=== PATIENT | female | born 1985 | race Two or more races ===

== ENCOUNTER 2018-11-08 13:05 | Inpatient (IN) | payer OTHER ==
[2018-11-08 14:33] VITALS: BMI 19.3
--- NOTE | 2018-11-08 16:16 | HP ---
COWS - Scale Resting Pulse: 0= [place] 80 or Below Sweatin= Chills/Flushing Restless Observation: 1= Difficult to Sit Still Pupil Size: 0= Normal to Room Light Bone or Joint Aches: 2= Severe Diffuse Aches Runny Nose/ Eye Tearin= Nasal Congestion GI Upset > 30mins: 2= Nausea/Diarrhea Tremor Observation: 1= Tremor [place], Not Seen Yawning Observation: 0= None Anxiety or Irritability: 1=Feels Anxious/Irritable Goose Flesh Skin: 0=Smooth Skin COWS Score: 9 CIWA Score Nausea/Vomitin Muscle Tremors: 2 Anxiety: 1-Mildly Anxious Agitation: 1-Slight > Activity Paroxysmal Sweats: 1-Minimal Palms Moist Orientation: 0-Oriented Tacttile Disturbances: 0-None Auditory Disturbances: 0-None Visual Disturbances: 0-None Headache: 3-Moderate CIWA-Ar Total Score: 10 - Admission Criteria [facility] Guidelines: Admission for Medically Managed Detox: Requires at least one of the followin. CIWA greater than 12 2. Seizures within the past 24 hours 3. Delirium tremens within the past 24 hours 4. Hallucinations within the past 24 hours 5. Acute intervention needed for co occurring medical disorder 6. Acute intervention needed for co occurring psychiatric disorder 7. Severe withdrawal that cannot be handled at a lower level of care (continued vomiting, continued diarrhea, abnormal vital signs) requiring intravenous medication and/or fluids 8. Admission [facility] Chief Complaint: 33 y/o F with PMH HTN, asthma, eczema, PNA, hx hemothorax after trauma, who presents for detox from heroin, opiates, marijuana, cocaine. Allergies/Adverse Reactions: Allergies Allergy/AdvReac Type Severity Reaction Status Date / Time pseudoephedrine Allergy Intermediate Difficulty Verified 11/08/18 14:12 [From Sudafed] Breathing History of Present Illness: 33 y/o F with PMH HTN, asthma, eczema, PNA, hx hemothorax after trauma, who presents for detox from heroin, opiates, marijuana, and cocaine. Per pt, last used heroin a few hours ago. Sniffed 1 bag worth. Uses it to calm down from cocaine. Usually uses 2x/ week - via sniffing usually uses 5 bags worth. Never has OD, never IVDA. Never tried methadone. Used xanax 2 sticks once/ week, last use 2 days ago. Has used marijuana since age 15 every day 2-3g each time. Drug of choice is cocaine - last use was a few hours ago, 1g at a time, smoking it. Also drinks daily 3 beers/ day, last drink was a bottle of alcohol. [facility] detox rehab - [facility] Has also been jailed in [place] in past. PMH: as above PsxH: asbcess, tympanostomy tubes x 2 meds: albuterol, hydrocortisone cream, clobetasol ointment allergies: pseudoephedrine - asthma trigger FH: dad : colon CA, mother - asthmatic, brain aneurysm. SH: gets money from robbing cars. worked as a nurse's aid previously. smokes cigarettes 1/2 ppd x 10 yrs Exam Limitations: No Limitations - Ebola screening Have you traveled outside of the country in the last 21 days: No Have you had contact with anyone from an Ebola affected area: No Do you have a fever: No - Review of Systems Constitutional: Chills, Diaphoresis, Unintentional Wgt. Loss EENT: reports: Blurred Vision, Nose Congestion, Throat Pain Respiratory: reports: Shortness of Breath Cardiac: reports: No Symptoms Reported GI: reports: Nausea : reports: No Symptoms Reported Musculoskeletal: reports: Back Pain, Joint Pain Integumentary: reports: No Symptoms Reported Endocrine: reports: No Symptoms Reported, Excessive Sweating Hematology: reports: No Symptoms Reported Psychiatric: reports: No Sypmtoms Reported, Orientated x3 Patient History - Patient Medical History Hx Anemia: No Hx Asthma: Yes Hx Chronic Obstructive Pulmonary Disease (COPD): No Hx Cancer: No Hx Cardiac Disorders: No Hx Congestive Heart Failure: No Hx Hypertension: Yes Hx Pacemaker: No HX Cerebrovascular Accident: No Hx Seizures: No Hx Dementia: No Hx Diabetes: No Hx Gastrointestinal Disorders: No Hx Liver Disease: No Hx Genitourinary Disorders: No Hx Sexually Transmitted Disorders: No Hx Renal Disease (ESRD): No Hx Thyroid Disease: No Hx Human Immunodeficiency Virus (HIV): No Hx Hepatitis C: No Hx Depression: No Hx Suicide Attempt: No Hx Bipolar Disorder: No Hx Schizophrenia: No - Patient Surgical History Past Surgical History: No Hx Neurologic Surgery: No Hx Cataract Extraction: No Hx Cardiac Surgery: No Hx Lung Surgery: No Hx Breast Surgery: No Hx Breast Biopsy: No Hx Abdominal Surgery: No Hx Appendectomy: No Hx Cholecystectomy: No Hx Genitourinary Surgery: No Hx Section: No Hx Orthopedic Surgery: No Hx Hysterectomy: No Other Surgical History: ?lung abscess, tympanostomy tubes x 2 Anesthesia Reaction: No - PPD History Documented Results: Negative w/o proof PPD to be Administered?: Yes - Reproductive History Patient is a Female of Child Bearing Age (11 -55 yrs old): Yes Last Menstrual Period: 11/08/18 Patient : No - Smoking Cessation Smoking history: Current every day smoker Have you smoked in the past 12 months: Yes Aproximately how many cigarettes per day: 10 Hx Chewing Tobacco Use: No Initiated information on smoking cessation: Yes 'Breaking Loose' booklet given: 11/08/18 - Substance & Tx. History Hx Alcohol Use: Yes Substance Use Type: Alcohol, Cocaine, Heroin, Opiates - Substances abused Heroin Substance route: Inhalation Frequency: 1-2 times per week Amount used: 2 Age of first use: 30 Date of last use: 11/08/18 Barbiturate Substance route: Smoking Frequency: 1-2 times per week Amount used: 2 sticks Age of first use: 31 Date of last use: 11/08/18 Marijuana/Hashish Substance route: Smoking Frequency: Daily Amount used: 3 blunts Age of first use: 15 Date of last use: 11/08/18 Cocaine Substance route: Inhalation Frequency: 3-6 times per week Amount used: 8 grams Age of first use: 17 Date of last use: 11/08/18 Family Disease History - Family Disease History Family Disease History: CA: Father (colon CA ), Other: Mother (asthmatic , brain aneurysm) Admission Physical Exam BHS - Vital Signs Vital Signs: Vital Signs - 24 hr 11/08/18 11/08/18 14:04 15:16 Temperature 98.3 F 98.3 F Pulse Rate 70 70 Respiratory 18 18 Rate Blood Pressure 126/86 126/86 - Physical General Appearance: Yes: Within Normal Limits HEENTM: Yes: Within Normal Limits Respiratory: Yes: Lungs Clear Neck: Yes: Within Normal Limits Breast: Yes: Within Normal Limits Cardiology: Yes: Within Normal Limits Abdominal: Yes: Normal Bowel Sounds Genitourinary: Yes: Within Normal Limits Back: Yes: Within Normal Limits Musculoskeletal: Yes: full range of Motion Extremities: Yes: Within Normal Limits 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 intact Integumentary: Yes: Within Normal Limits Lymphatic: Yes: Within Normal Limits - Diagnostic (1) Hypertension Current Visit: Yes Status: Chronic (2) Asthma Current Visit: Yes Status: Chronic (3) Opiate withdrawal Current Visit: Yes Status: Acute (4) Marijuana use Current Visit: Yes Status: Chronic (5) Eczema Current Visit: Yes Status: Chronic (6) Alcohol dependence Current Visit: Yes Status: Chronic (7) Cocaine dependence Current Visit: Yes Status: Chronic Qualifiers: Substance use status: uncomplicated Qualified Code(s): F14.20 - Cocaine dependence, uncomplicated Cleared for Admission S - Detox or Rehab [facility] Level of Care: Medically Managed Detox Regimen/Protocol: Methadone Breathalyzer - Breathalyzer Breathalyzer: 0 Urine Drug Screen - Test Device Lot number: [id number] Expiration date: 08/23/20 - Control Is test valid?: Yes - Results Drug screen NEGATIVE: No Urine drug screen results: THC-Marijuana, ANTON-Cocaine, MOP-Opiates Inpatient Rehab Admission - Rehab Decision to Admit Inpatient rehab admission?: No
[2018-11-08] MEDS ORDERED: cloNIDine HCL 0.1 MG TABLET PO PRN (17:09)
[2018-11-08] MEDS ORDERED: IBUPROFEN 400 MG TABLET (FP) PO PRN (17:11)
[2018-11-08] MEDS ORDERED: BISMUTH SUBSALICYLATE 524 MG/30 ML UD PO PRN (17:11)
[2018-11-08] MEDS ORDERED: MENTHOL/PHENOL 1 EACH UD MM PRN (17:11)
[2018-11-08] MEDS ORDERED: NICOTINE POLACRILEX 2 MG GUM BUC PRN (17:11)
[2018-11-08] MEDS ORDERED: MAGNESIUM HYDROX 2400MG/30ML ORAL SUSPENSION 30 ML CUP PO PRN (17:11)
[2018-11-08] MEDS ORDERED: MAG HYDROX/AL HYDROX/SIMETH 30 ML UNIT-DOSE CUP PO PRN (17:11)
[2018-11-08] MEDS ORDERED: ACETAMINOPHEN 325 MG TABLET (FP) PO PRN (17:11)
[2018-11-08] MEDS ORDERED: FLUOCINONIDE 0.05% CREAM (15 GM TUBE) TP PRN (17:14)
[2018-11-08] MEDS ORDERED: METHADONE HCL 10 MG TABLET (FOR DETOX USE ONLY) PO ONE (18:00)
--- NOTE | 2018-11-08 18:24 | PN ---
Teaching Attending Note Name of Resident: Svetlana Ignacio ATTENDING PHYSICIAN STATEMENT I saw and evaluated the patient. I reviewed the resident's note and discussed the case with the resident. I agree with the resident's findings and plan as documented. SUBJECTIVE: pt here from detox of multiple substance use- alcohol/heroin/ cocaine. Pt states she is tired of using and wants to stop-USed to work as a administrative nursing supervisor OBJECTIVE: Vital Signs - 24 hr 11/08/18 11/08/18 14:04 15:16 Temperature 98.3 F 98.3 F Pulse Rate 70 70 Respiratory 18 18 Rate Blood Pressure 126/86 126/86 mildly tremulous alert and oriented ASSESSMENT AND PLAN: admit for alcohol and heroin detox pt would like to go for rehab after detox
[2018-11-08] MEDS: HYDROCORTISONE 1% TOPICAL CREAM 30 GM TUBE TP SCH (23:00)
[2018-11-08] MEDS: THIAMINE HCL 100 MG TABLET (FP) PO SCH (23:00)
[2018-11-08] MEDS: MELATONIN 5 MG TABLETS PO PRN (23:10)
[2018-11-09] MEDS: ALBUTEROL SO4 0.083% IH SOL 2.5 MG/3 ML VIAL.NEB. NEB PRN (03:16)
[2018-11-09] MEDS: HYDROCORTISONE 1% TOPICAL CREAM 30 GM TUBE TP SCH ×3 (07:07→22:22)
[2018-11-09] MEDS ORDERED: METHADONE HCL 10 MG TABLET (FOR DETOX USE ONLY) ONE (09:02)
[2018-11-09] MEDS ORDERED: METHADONE HCL 5 MG TABLET (FOR DETOX USE ONLY) ONE (09:02)
[2018-11-09 09:39] LABS: HEMATOCRIT 36.6 % (32.4-45.2); HEMOGLOBIN 12.2 GM/dL (10.7-15.3); MCH 29.8 pg (25.7-33.7); MCHC 33.5 g/dl (32.0-36.0); MEAN PLT VOLUME 7.4 fl (7.5-11.1); PLATELET COUNT 290 K/MM3 (134-434); RBC 4.11 M/mm3 (3.60-5.2); RDW 14.6 % (11.6-15.6); WHITE BLOOD COUNT 6.1 K/mm3 (4.0-10.0)
[2018-11-09] MEDS ORDERED: METHADONE (DETOX) 20 MG, METHADONE (DETOX) 5 MG PO ONE (10:00)
[2018-11-09 10:36] LABS: ALBUMIN 2.9 g/dl (3.4-5.0); BILIRUBIN,TOTAL 0.3 mg/dL (0.2-1); BLOOD UREA NITROGEN 14.5 mg/dL (7-18); CALCIUM 8.4 mg/dL (8.5-10.1); CREATININE 0.8 mg/dL (0.55-1.3)
[2018-11-09] MEDS: PRENATAL VITAMINS W/ FOLIC ACID TABLET (FP) PO SCH (10:52)
[2018-11-09] MEDS: METHOCARBAMOL 500 MG TABLET PO SCH ×2 (11:53→22:23)
--- NOTE | 2018-11-09 12:31 | PN ---
BHS COWS - Scale Resting Pulse: 1= [place] 81-100 Sweatin=Flushed/Facial Moisture Restless Observation: 1= Difficult to Sit Still Pupil Size: 0= Normal to Room Light Bone or Joint Aches: 2= Severe Diffuse Aches Runny Nose/ Eye Tearin= None GI Upset > 30mins: 0= None Tremor Observation of Outstretched Hands: 2= Slight Tremor Visible Yawning Observation: 1= 1-2x During Session Anxiety or Irritability: 2=Irritable/Anxious Goose Flesh Skin: 0=Smooth Skin COWS Score: 11 BHS Progress Note (SOAP) Subjective: sweats mild shakes interrupted sleep restless body aches Objective: 11/09/18 12:30 Vital Signs Temperature 97.7 F 11/09/18 07:42 Pulse Rate 64 11/09/18 07:42 Respiratory Rate 18 11/09/18 07:42 Blood Pressure 119/77 11/09/18 07:42 O2 Sat by Pulse Oximetry (%) 98 11/09/18 03:46 Laboratory Tests 11/09/18 11/09/18 11/09/18 07:40 07:40 07:40 WBC 6.1 RBC 4.11 Hgb 12.2 Hct 36.6 MCV 89.0 MCH 29.8 MCHC 33.5 RDW 14.6 Plt Count 290 MPV 7.4 L Sodium 141 Potassium 4.0 Chloride 106 Carbon Dioxide 29 Anion Gap 6 L BUN 14.5 Creatinine 0.8 Est GFR (CKD-EPI)AfAm 113.06 Est GFR (CKD-EPI)NonAf 97.55 Random Glucose 115 H Calcium 8.4 L Total Bilirubin 0.3 AST 16 ALT 19 Alkaline Phosphatase 74 Total Protein 6.0 L Albumin 2.9 L HIV 1&2 Antibody Screen Negative HIV P24 Antigen Negative labs noted aaox3 ambulating no acute distress Assessment: 11/09/18 12:30 withdrawal sx Plan: continue detox increase fluids valium 10mg prn
[2018-11-09] MEDS ORDERED: ONDANSETRON *ODT* 4 MG TABLET SL PRN (13:44)
--- NOTE | 2018-11-09 13:47 | PN ---
S Progress Note Note: Vital Signs Temperature 97.5 F L 11/09/18 13:02 Pulse Rate 64 11/09/18 13:02 Respiratory Rate 18 11/09/18 13:02 Blood Pressure 131/69 11/09/18 13:02 O2 Sat by Pulse Oximetry (%) 98 11/09/18 03:46 c/o of nausea and vomiting zofran prn fluids as tolerate continue to monitor
[2018-11-09] MEDS: MELATONIN 5 MG TABLETS PO PRN (22:23)
[2018-11-09] MEDS: THIAMINE HCL 100 MG TABLET (FP) PO SCH (22:23)
[2018-11-10] MEDS: HYDROCORTISONE 1% TOPICAL CREAM 30 GM TUBE TP SCH ×3 (05:42→22:52)
[2018-11-10] MEDS ORDERED: METHADONE HCL 10 MG TABLET (FOR DETOX USE ONLY) PO ONE (10:00)
[2018-11-10] MEDS: METHOCARBAMOL 500 MG TABLET PO SCH ×2 (10:16→22:50)
[2018-11-10] MEDS: PRENATAL VITAMINS W/ FOLIC ACID TABLET (FP) PO SCH (10:16)
--- NOTE | 2018-11-10 12:32 | PN ---
BHS COWS - Scale Resting Pulse: 0= [place] 80 or Below Sweatin=Flushed/Facial Moisture Restless Observation: 1= Difficult to Sit Still Pupil Size: 0= Normal to Room Light Bone or Joint Aches: 2= Severe Diffuse Aches Runny Nose/ Eye Tearin= Nasal Congestion GI Upset > 30mins: 0= None Tremor Observation of Outstretched Hands: 1= Tremor [place], Not Seen Yawning Observation: 0= None Anxiety or Irritability: 1=Feels Anxious/Irritable Goose Flesh Skin: 0=Smooth Skin COWS Score: 8 BHS Progress Note (SOAP) Subjective: dry skin/itchy sweats restless Objective: 11/10/18 12:34 Vital Signs Temperature 97.3 F L 11/10/18 09:49 Pulse Rate 69 11/10/18 09:49 Respiratory Rate 18 11/10/18 09:49 Blood Pressure 135/76 11/10/18 09:49 O2 Sat by Pulse Oximetry (%) 98 11/09/18 03:46 Laboratory Tests 11/08/18 11/09/18 11/09/18 14:54 07:40 07:40 WBC 6.1 RBC 4.11 Hgb 12.2 Hct 36.6 MCV 89.0 MCH 29.8 MCHC 33.5 RDW 14.6 Plt Count 290 MPV 7.4 L Sodium 141 Potassium 4.0 Chloride 106 Carbon Dioxide 29 Anion Gap 6 L BUN 14.5 Creatinine 0.8 Est GFR (CKD-EPI)AfAm 113.06 Est GFR (CKD-EPI)NonAf 97.55 Random Glucose 115 H Calcium 8.4 L Total Bilirubin 0.3 AST 16 ALT 19 Alkaline Phosphatase 74 Total Protein 6.0 L Albumin 2.9 L POC Urine HCG, Qual Negative RPR Titer HIV 1&2 Antibody Screen HIV P24 Antigen 11/09/18 11/09/18 07:40 07:40 WBC RBC Hgb Hct MCV MCH MCHC RDW Plt Count MPV Sodium Potassium Chloride Carbon Dioxide Anion Gap BUN Creatinine Est GFR (CKD-EPI)AfAm Est GFR (CKD-EPI)NonAf Random Glucose Calcium Total Bilirubin AST ALT Alkaline Phosphatase Total Protein Albumin POC Urine HCG, Qual RPR Titer Nonreactive HIV 1&2 Antibody Screen Negative HIV P24 Antigen Negative labs noted aaox3 ambulating no acute distress Assessment: 11/10/18 12:34 withdrawals noted Plan: continue detox increase fluids aveeno soap lac hydrin lotion
[2018-11-10] MEDS ORDERED: COLLOIDAL OATMEAL 1 BAR EACH TP ONE (13:00)
[2018-11-10] MEDS: AMMONIUM LACTATE 12% LOTION 225 GM BOTTLE TP SCH ×2 (13:49→22:52)
[2018-11-10] MEDS: ALBUTEROL SO4 0.083% IH SOL 2.5 MG/3 ML VIAL.NEB. NEB PRN (19:55)
[2018-11-10] MEDS ORDERED: PT OWN MED DRAWER 7, Y5N ONE (21:19)
[2018-11-10] MEDS: MELATONIN 5 MG TABLETS PO PRN (22:46)
[2018-11-10] MEDS: diazePAM 5 MG TABLET PO PRN (22:46)
[2018-11-10] MEDS: THIAMINE HCL 100 MG TABLET (FP) PO SCH (22:47)
[2018-11-11] MEDS: ALBUTEROL SO4 0.083% IH SOL 2.5 MG/3 ML VIAL.NEB. NEB PRN (03:48)
[2018-11-11] MEDS: HYDROCORTISONE 1% TOPICAL CREAM 30 GM TUBE TP SCH ×3 (07:16→22:52)
[2018-11-11] MEDS ORDERED: METHADONE HCL 5 MG TABLET (FOR DETOX USE ONLY) ONE (09:10)
[2018-11-11] MEDS ORDERED: METHADONE HCL 10 MG TABLET (FOR DETOX USE ONLY) ONE (09:10)
[2018-11-11] MEDS ORDERED: METHADONE (DETOX) 10 MG, METHADONE (DETOX) 5 MG PO ONE (10:00)
[2018-11-11] MEDS: PRENATAL VITAMINS W/ FOLIC ACID TABLET (FP) PO SCH (10:16)
[2018-11-11] MEDS: METHOCARBAMOL 500 MG TABLET PO SCH ×2 (10:17→22:54)
[2018-11-11] MEDS: AMMONIUM LACTATE 12% LOTION 225 GM BOTTLE TP SCH ×2 (10:17→22:53)
[2018-11-11] MEDS: diazePAM 5 MG TABLET PO PRN ×3 (10:20→22:53)
--- NOTE | 2018-11-11 12:02 | PN ---
BHS COWS - Scale Resting Pulse: 0= [place] 80 or Below Sweatin= Chills/Flushing Restless Observation: 1= Difficult to Sit Still Pupil Size: 1= Pupils >than Normal Bone or Joint Aches: 1= Mild Discomfort Runny Nose/ Eye Tearin= None GI Upset > 30mins: 0= None Tremor Observation of Outstretched Hands: 0= None Yawning Observation: 0= None Anxiety or Irritability: 1=Feels Anxious/Irritable Goose Flesh Skin: 0=Smooth Skin COWS Score: 5 BHS Progress Note (SOAP) Subjective: interrupted sleep,mild sweats Objective: 11/11/18 12:00 Vital Signs Temperature 98.1 F 11/11/18 09:24 Pulse Rate 75 11/11/18 09:24 Respiratory Rate 17 11/11/18 09:24 Blood Pressure 120/75 11/11/18 09:24 O2 Sat by Pulse Oximetry (%) 99 11/11/18 04:18 Laboratory Tests 11/08/18 11/09/18 11/09/18 14:54 07:40 07:40 WBC 6.1 RBC 4.11 Hgb 12.2 Hct 36.6 MCV 89.0 MCH 29.8 MCHC 33.5 RDW 14.6 Plt Count 290 MPV 7.4 L Sodium 141 Potassium 4.0 Chloride 106 Carbon Dioxide 29 Anion Gap 6 L BUN 14.5 Creatinine 0.8 Est GFR (CKD-EPI)AfAm 113.06 Est GFR (CKD-EPI)NonAf 97.55 Random Glucose 115 H Calcium 8.4 L Total Bilirubin 0.3 AST 16 ALT 19 Alkaline Phosphatase 74 Total Protein 6.0 L Albumin 2.9 L POC Urine HCG, Qual Negative RPR Titer HIV 1&2 Antibody Screen HIV P24 Antigen 11/09/18 11/09/18 07:40 07:40 WBC RBC Hgb Hct MCV MCH MCHC RDW Plt Count MPV Sodium Potassium Chloride Carbon Dioxide Anion Gap BUN Creatinine Est GFR (CKD-EPI)AfAm Est GFR (CKD-EPI)NonAf Random Glucose Calcium Total Bilirubin AST ALT Alkaline Phosphatase Total Protein Albumin POC Urine HCG, Qual RPR Titer Nonreactive HIV 1&2 Antibody Screen Negative HIV P24 Antigen Negative pt aox3 in nad ambulaitng Assessment: 11/11/18 12:01 withdrawal sx's Plan: increase fluids cont. fluids
[2018-11-11] MEDS: hydrOXYzine HCL 25 MG TABLET (FP) PO PRN (22:53)
[2018-11-11] MEDS: MELATONIN 5 MG TABLETS PO PRN (22:53)
[2018-11-11] MEDS: THIAMINE HCL 100 MG TABLET (FP) PO SCH (22:53)
[2018-11-12] MEDS: HYDROCORTISONE 1% TOPICAL CREAM 30 GM TUBE TP SCH ×3 (07:28→23:18)
[2018-11-12] MEDS: ALBUTEROL SO4 8 GM HFA INHALER IH PRN (08:01)
[2018-11-12] MEDS ORDERED: METHADONE HCL 10 MG TABLET (FOR DETOX USE ONLY) PO ONE (10:00)
[2018-11-12] MEDS: PRENATAL VITAMINS W/ FOLIC ACID TABLET (FP) PO SCH (10:13)
[2018-11-12] MEDS: METHOCARBAMOL 500 MG TABLET PO SCH ×2 (10:13→23:18)
[2018-11-12] MEDS: AMMONIUM LACTATE 12% LOTION 225 GM BOTTLE TP SCH ×2 (10:14→23:18)
[2018-11-12] MEDS: hydrOXYzine HCL 25 MG TABLET (FP) PO PRN ×2 (10:15→17:51)
--- NOTE | 2018-11-12 12:04 | PN ---
BHS COWS - Scale Resting Pulse: 0= [place] 80 or Below Sweatin= Beads of Sweat on Face Restless Observation: 1= Difficult to Sit Still Pupil Size: 0= Normal to Room Light Bone or Joint Aches: 0= None Runny Nose/ Eye Tearin= None GI Upset > 30mins: 0= None Tremor Observation of Outstretched Hands: 0= None Yawning Observation: 1= 1-2x During Session Anxiety or Irritability: 2=Irritable/Anxious Goose Flesh Skin: 0=Smooth Skin COWS Score: 7 BHS Progress Note (SOAP) Subjective: c/o sweats, anxiety, and interrupted sleep. Objective: 11/12/18 12:03 Vital Signs 11/12/18 11/12/18 08:27 09:00 Temperature 97.7 F 97.7 F Pulse Rate 62 64 Respiratory 16 18 Rate Blood Pressure 104/67 127/62 Lab Results WBC 6.1 K/mm3 (4.0-10.0) 11/09/18 07:40 RBC 4.11 M/mm3 (3.60-5.2) 11/09/18 07:40 Hgb 12.2 GM/dL (10.7-15.3) 11/09/18 07:40 Hct 36.6 % (32.4-45.2) 11/09/18 07:40 MCV 89.0 fl (80-96) 11/09/18 07:40 MCHC 33.5 g/dl (32.0-36.0) 11/09/18 07:40 RDW 14.6 % (11.6-15.6) 11/09/18 07:40 Plt Count 290 K/MM3 (134-434) 11/09/18 07:40 Sodium 141 mmol/L (136-145) 11/09/18 07:40 Potassium 4.0 mmol/L (3.5-5.1) 11/09/18 07:40 Chloride 106 mmol/L (98-107) 11/09/18 07:40 Carbon Dioxide 29 mmol/L (21-32) 11/09/18 07:40 Anion Gap 6 MMOL/L (8-16) L 11/09/18 07:40 BUN 14.5 mg/dL (7-18) 11/09/18 07:40 Creatinine 0.8 mg/dL (0.55-1.3) 11/09/18 07:40 Random Glucose 115 mg/dL (74-106) H 11/09/18 07:40 Calcium 8.4 mg/dL (8.5-10.1) L 11/09/18 07:40 Labs noted. Assessment: 11/12/18 12:03 AOX3, in no acute distress. Full ROM, ambulating in the unit. withdrawal symptoms. Plan: continue detox.
[2018-11-12] MEDS: THIAMINE HCL 100 MG TABLET (FP) PO SCH (23:19)
[2018-11-13] MEDS: ALBUTEROL SO4 8 GM HFA INHALER IH PRN (01:38)
[2018-11-13] MEDS: MELATONIN 5 MG TABLETS PO PRN (01:38)
[2018-11-13] MEDS ORDERED: METHADONE HCL 5 MG TABLET (FOR DETOX USE ONLY) PO ONE (06:00)
[2018-11-13] MEDS: HYDROCORTISONE 1% TOPICAL CREAM 30 GM TUBE TP SCH ×2 (08:44→15:19)
[2018-11-13] MEDS: METHOCARBAMOL 500 MG TABLET PO SCH (11:59)
[2018-11-13] MEDS: AMMONIUM LACTATE 12% LOTION 225 GM BOTTLE TP SCH (11:59)
[2018-11-13] MEDS: PRENATAL VITAMINS W/ FOLIC ACID TABLET (FP) PO SCH (11:59)
[2018-11-13 13:59] VITALS: BP 118/67; PULSE 74; TEMP 97.2
--- NOTE | 2018-11-13 14:00 | DS ---
[facility] Detox Discharge Summary Admission Date: 11/08/18 Discharge Date: 11/13/18 - History Present History: Cocaine Dependence, Opioid Dependence - Physical Exam Results Vital Signs: Vital Signs Temperature 97.7 F 11/13/18 09:44 Pulse Rate 68 11/13/18 09:44 Respiratory Rate 16 11/13/18 09:44 Blood Pressure 113/63 11/13/18 09:44 O2 Sat by Pulse Oximetry (%) 99 11/11/18 04:18 Pertinent Admission Physical Exam Findings: Vital Signs Temperature 97.2 F L 11/13/18 13:59 Pulse Rate 74 11/13/18 13:59 Respiratory Rate 16 11/13/18 13:59 Blood Pressure 118/67 11/13/18 13:59 O2 Sat by Pulse Oximetry (%) 99 11/11/18 04:18 Laboratory Tests 11/08/18 11/09/18 11/09/18 14:54 07:40 07:40 WBC 6.1 RBC 4.11 Hgb 12.2 Hct 36.6 MCV 89.0 MCH 29.8 MCHC 33.5 RDW 14.6 Plt Count 290 MPV 7.4 L Sodium 141 Potassium 4.0 Chloride 106 Carbon Dioxide 29 Anion Gap 6 L BUN 14.5 Creatinine 0.8 Est GFR (CKD-EPI)AfAm 113.06 Est GFR (CKD-EPI)NonAf 97.55 Random Glucose 115 H Calcium 8.4 L Total Bilirubin 0.3 AST 16 ALT 19 Alkaline Phosphatase 74 Total Protein 6.0 L Albumin 2.9 L POC Urine HCG, Qual Negative RPR Titer HIV 1&2 Antibody Screen HIV P24 Antigen 11/09/18 11/09/18 07:40 07:40 WBC RBC Hgb Hct MCV MCH MCHC RDW Plt Count MPV Sodium Potassium Chloride Carbon Dioxide Anion Gap BUN Creatinine Est GFR (CKD-EPI)AfAm Est GFR (CKD-EPI)NonAf Random Glucose Calcium Total Bilirubin AST ALT Alkaline Phosphatase Total Protein Albumin POC Urine HCG, Qual RPR Titer Nonreactive HIV 1&2 Antibody Screen Negative HIV P24 Antigen Negative - Treatment Hospital Course: Detox Protocol Followed, Detoxed Safely, Responded well, Discharged Condition Good, Rehab Referral Accepted Patient has Accepted a Rehab Referral to: [facility] - Medication Discharge Medications: Ambulatory Orders Albuterol 2.5/Ipratropium 0.5 [Duoneb -] 1 neb IH QID PRN 11/08/18 Albuterol Sulfate [Proventil HFA Inhaler -] 1 - 2 inh PO TID PRN 11/08/18 Clobetasol Propionate/Emoll [Clobetasol Emollient 0.05% Crm] 15 gm TP BID PRN Hydrocortisone 1% Cream [Hytone 1% Cream -] 1 applic TP TID 11/08/18 - Diagnosis (1) Opioid dependence Current Visit: Yes Status: Chronic Qualifiers: Substance use status: uncomplicated Qualified Code(s): F11.20 - Opioid dependence, uncomplicated (2) Alcohol dependence Current Visit: Yes Status: Chronic Qualifiers: Substance use status: uncomplicated Qualified Code(s): F10.20 - Alcohol dependence, uncomplicated (3) Asthma Current Visit: Yes Status: Chronic Qualifiers: Asthma severity: mild Asthma persistence: unspecified (4) Cocaine dependence Current Visit: Yes Status: Chronic Qualifiers: Substance use status: uncomplicated Qualified Code(s): F14.20 - Cocaine dependence, uncomplicated - AMA Did Patient Leave Against Medical Advice: No
[2018-11-13] MEDS: hydrOXYzine HCL 25 MG TABLET (FP) PO PRN (15:10)
== END 2018-11-13 15:14 | disposition other institution (70) | DRG 773 ==
LOC: YASAS 13:05 → Y6N 17:49
PROVIDERS: ADMIT Surgery; ATTEND Surgery
PROC: HZ2ZZZZ Detoxification Services for Substance Abuse Treatment (ICD-10-PCS; principal; 2018-11-08)
DX: F11.23 Opioid dependence with withdrawal (principal); F10.230 Alcohol dependence with withdrawal, uncomplicated; F14.20 Cocaine dependence, uncomplicated; F12.90 Cannabis use, unspecified, uncomplicated; F17.210 Nicotine dependence, cigarettes, uncomplicated; I10 Essential (primary) hypertension; J45.909 Unspecified asthma, uncomplicated; L30.9 Dermatitis, unspecified
CPT/HCPCS: 36415; 80053; 81025; 85027; 86593; 87389; 94640

== ENCOUNTER 2018-11-13 15:34 | Inpatient (IN) | payer OTHER | END 2018-11-28 09:24 | disposition home or self-care (01) | LOC: YASAS 15:34 → Y3E 11-14 18:26 | PROC: HZ42ZZZ Group Counseling for Substance Abuse Treatment, Cognitive-Behavioral (ICD-10-PCS; principal; 2018-11-13) | DX: F11.20 Opioid dependence, uncomplicated (principal); F14.20 Cocaine dependence, uncomplicated; F12.20 Cannabis dependence, uncomplicated; F13.10 Sedative, hypnotic or anxiolytic abuse, uncomplicated; F17.210 Nicotine dependence, cigarettes, uncomplicated; F19.280 Other psychoactive substance dependence with psychoactive substance-induced anxiety disorder; F19.282 Other psychoactive substance dependence with psychoactive substance-induced sleep disorder; I10 Essential (primary) hypertension; J45.20 Mild intermittent asthma, uncomplicated; L30.9 Dermatitis, unspecified; R07.81 Pleurodynia ==